=== PATIENT | male | born 1990 | race Caucasian/White ===

== ENCOUNTER 2025-02-26 07:42 | Outpatient (CLI) | payer BC, SELFPAY ==
--- OUTSIDE RECORDS SUMMARY | 2025-02-18 10:29 | XMS_ITS | Clinical Summary ---
Author Organization [facility] Address [address], [address] [place] [address] Care Team Providers Care Attendance Officer Name Role Phone Noemi Hazel SUPERVISOR WHITE SUGAR - FORECLOSURE SPECIALIST Primary Care Provider Allergies No known active allergies Medications acetaminophen (TYLENOL) 325 MG tablet Take 3 tablets by mouth every 6 hours as needed for Pain Active cyclobenzaprine (FLEXERIL) 10 MG tablet Take 1 tablet by mouth 3 times daily as needed for Muscle spasms 15 tablet 3 Active Additional Information Patient not taking.Reported on 02/10/2023 lisinopril (PRINIVIL;ZESTRI L) 10 MG tabletIndication s:Primary hypertension Take 1 tablet by mouth daily 90 tablet 1 3 Active ibuprofen (ADVIL;MOTRIN) 800 MG tablet Take 1 tablet by mouth every 8 hours as needed for Pain or Fever 30 tablet 3 Active Active Problems No known active problems Family History Medical History Relation Name Comments No Known Problems Father Breast Cancer Mother High Blood Pressure Mother Relation Name Status Comments Father Alive Mother Alive Social History Tobacco Use Types Packs/Day Years Used Date Smoking Tobacco: Former Cigarettes Tobacco Cessation:Counseling Given: Not Answered Alcohol Use Standard Drinks/Week Comments Yes 0 (1 standard drink = 0.6 oz pure alcohol) 1 beer after work usually a day Overall Financial Resource Strain (CARDIA) Answe r Date Recorded How hard is it for you to pa y for the very basics like food, housing, medical care, and heating? Not hard at all 02/10/2023 PHQ-2 Answer Date Recorded PHQ-9 Total Score 0 02/10/2023 Hunger Vital Sign Answer Date Recorded Within the past 12 months, y ou worried that your food would run out before you got the money to buy more. Never true 02/11/20 23 Within the past 12 months, t he food you bought just didn't last and you didn't have money to get more. Never true 02/10/2023 PRAPARE - Transportation Answer Date Re corded Lack of Transportation (Medical) Not on file 02/10/2023 In the past 12 months, has l ack of transportation kept you from meetings, work, or from getting things needed for daily living? No 02/10/2023 Housing Stability Vital Sign Answer Gómez e Recorded Unable to Pay for Housing in the Last Year Not o n file 02/10/2023 Number of Places Lived in the Last Year Not on f ile 02/10/2023 In the last 12 months, was t here a time when you did not have a steady place to sleep or slept in a snf (including now)? No 02/10/2023 Food Insecurity Answer Date Recorded Within the past 12 months, y ou worried that your food would run out before you got the money to buy more. 1 02/10/2023 Within the past 12 months, t he food you bought just didn't last and you didn't have money to get more. 1 02/10/2023 Interpersonal Safety Domain Source: IP Abuse Scr eening Answer Date Recorded Read-Only, Retired: Physical Abuse Denies 01/28/2023 Read-Only, Retired: Verbal Abuse Denies 01/28/2023 Read-Only, Retired: Emotional abuse Denies 01/28/2023 Read-Only, Retired: Financial Abuse Denies 01/28/2023 Read-Only, Retired: Sexual abuse Denies 01/28/2023 Sex and Gender Information Value Date Recorded Sex Assigned at Not on file Legal Sex Male 9:15 PM EST Gender Identity Not on file Sexual Orientation Not on file Last Filed Vital Signs Vital Sign Reading Time Taken Comments Blood Pressure 162/107 04/20/2023 1:41 PM EST Pulse 108 04/20/2023 1:41 PM EST Temperature 36.8 C (98.2 F) 04/20/2023 1:41 PM EST Respiratory Rate 20 04/20/2023 1:41 PM EST Oxygen Saturation 97% 04/20/2023 1:41 PM EST Inhaled Oxygen Concentration - - Weight 77.1 kg (170 lb) 04/20/2023 1:41 PM EST Height 190.5 cm (6' 3 ) 04/20/2023 1:41 PM EST Body Mass Index 21.25 04/20/2023 1:41 PM EST Plan of Treatment Health Maintenance Due Date Last Done Comments Varicella vaccine (1 of 2 - 13+ 2-dose series) 01/06/2001 HIV screen 01/06/2003 Hepatitis C screen 01/06/2006 DTaP/Tdap/Td vaccine (1 - Tdap) 01/06/2007 Hepatitis B vaccine (1 of 3 - 19+ 3-dose series) 01/06/2007 Depression Screen 02/11/2024 COVID-19 Vaccine (1 - 2023-2 5 season) 2024 Flu vaccine (#1) 01/11/2025 HPV vaccine (No Doses Required) Completed Hepatitis A vaccine Aged Out No longe r eligible based on patient's age to complete this topic Hib vaccine Aged Out No longer eligi ble based on patient's age to complete this topic Meningococcal (ACWY) vaccine Aged Out No longer eligible based on patient's age to complete this topic Meningococcal B vaccine Aged Out No l onger eligible based on patient's age to complete this topic Pneumococcal 0-49 years Vaccine Aged Out No longer eligible based on patient's age to complete this topic Polio vaccine Aged Out No longer elig ible based on patient's age to complete this topic Insurance Care Teams Attendance Officer Relationship Specialty Start Date End Date Noemi Hazel APRN - [place] [address] PCP - General Family Nurse Practitioner 02/10/23
--- OUTSIDE RECORDS SUMMARY | 2025-02-18 10:29 | XMS_ITS | Encounter Summary ---
Author Organization [facility] Address [address] [place], [place] [id number] Phone [email or web address] Care Team Providers Care Collet Driller Name Role Phone Unavailable Primary Care Provider Unavailabl e Encounter Details Date Type Department Care Team (Late st Contact Info) Description 01/15/2025 Documentation [facility] [address] [place] [address] Shireen Ghosh RN [address] [place] [address] Social History Tobacco Use Types Packs/Day Years Used Date Smoking Tobacco: Never Assessed Sex and Gender Information Value Date Recorded Sex Assigned at Not on file Legal Sex Male 6:21 AM CDT Gender Identity Not on file Sexual Orientation Not on file documented as of this encounter Progress Notes * Shireen Ghosh RN - 01/15/2025 9:20 AM EDT Applicant called. States his provider changed his BP med. Has f/u scheduled. Applicant to monitor BP and call after he is seen by his PCP. documented in this encounter Plan of Treatment Not on file documented as of this encounter Visit Diagnoses Not on filedocumented in this encounter
--- OUTSIDE RECORDS SUMMARY | 2025-02-18 10:29 | XMS_ITS | Clinical Summary ---
Author Organization [facility] Address [address] [place] [phone] Phone [email or web address] Care Team Providers Care Chipper Operator Name Role Phone Unavailable Primary Care Provider Unavailabl e Allergies No known active allergies Medications bisoprolol-hydro CHLOROthiazide (ZIAC) 10-6.25 MG per tablet Take 1 tablet by mouth 1 (one) time each day. 01/02/2025 Active Active Problems No known active problems Encounters Date Type Department Care Team Description 01/15/2025 Documentation [facility] [id number] [place] [phone] Shireen Ghosh RN from Last 3 Months Social History Tobacco Use Types Packs/Day Years Used Date Smoking Tobacco: Never Assessed Sex and Gender Information Value Date Recorded Sex Assigned at Not on file Legal Sex Male 6:21 AM CDT Gender Identity Not on file Sexual Orientation Not on file Last Filed Vital Signs Vital Sign Reading Time Taken Comments Blood Pressure 140/92 01/23/2025 7:27 AM EDT Pulse 74 01/23/2025 7:27 AM EDT Temperature 36.9 C (98.5 F) 01/23/2025 7:27 AM EDT Respiratory Rate - - Oxygen Saturation 98% 01/23/2025 7:27 AM EDT Inhaled Oxygen Concentration - - Weight 81.6 kg (180 lb) 01/23/2025 7:27 AM EDT Height 193 cm (6' 4 ) 01/23/2025 7:27 AM EDT Body Mass Index 21.91 01/23/2025 7:27 AM EDT Plan of Treatment Health Maintenance Due Date Last Done Comments Dental Cleaning/Exam 1988 HIV Screening 1988 Hepatitis C Screening 1988 HPV Immunization (1 - Male 3 -dose series) 01/06/2003 Hep B Infection Screening - Triple Screen 01/06/2006 Hepatitis B Immunization (1 of 3 - 19+ 3-dose series) 01/06/2007 Tetanus Diphtheria and Pertu ssis Immunization (1 - Tdap) 01/06/2007 Covid-19 Immunization (1 - 2 -25 season) 2025 Influenza Immunization (#1) 2025 Annual Preventive Exam 01/10/2026 01/10/2025 HIB Immunization Aged Out No longer e ligible based on patient's age to complete this topic Hepatitis A Immunization Aged Out No longer eligible based on patient's age to complete this topic Pneumococcal: Ped (0 to 5 Yr s) and At-Risk Member (6 to 64 Yrs) Aged Out No longer e ligible based on patient's age to complete this topic Polio Immunization Aged Out No longer eligible based on patient's age to complete this topic Varicella Immunization Aged Out No lo nger eligible based on patient's age to complete this topic
--- NOTE | 2025-02-26 | US_ITS ---
FINAL REPORT TECHNIQUE: Multiple transverse and longitudinal images CLINICAL HISTORY: ELEV LIVER ENZYMES COMPARISON: none FINDINGS: The gallbladder is partially contracted. Mild gallbladder wall thickening is attributed to contracted state. No biliary ductal dilatation is appreciated. No fluid collections are seen. There is fatty change of the liver. Limited portions of the right kidney are unremarkable. Pancreas is largely obscured. IMPRESSION: Fatty liver. Partially contracted gallbladder. Reviewed, Interpreted and Dictated by Kena Su MD Transcribed by Chaya Villar Authenticated and [facility]
--- OUTSIDE RECORDS SUMMARY | 2025-02-26 07:44 | XMS_ITS | Clinical Summary ---
Author Organization [facility] Address [address] [place] [phone] Phone [email or web address] Care Team Providers Care Perinatal Director Name Role Phone Unavailable Primary Care Provider Unavailabl e Allergies No known active allergies Medications bisoprolol-hydro CHLOROthiazide (ZIAC) 10-6.25 MG per tablet Take 1 tablet by mouth 1 (one) time each day. 01/02/2025 Active Active Problems No known active problems Encounters Date Type Department Care Team Description 01/15/2025 Documentation [facility] [address] [place] [phone] Shrieen Ghosh RN from Last 3 Months Social [...]
--- OUTSIDE RECORDS SUMMARY | 2025-02-26 07:44 | XMS_ITS | Clinical Summary ---
Author Organization [facility] Address [address], [address] [place] [address] Care Team Providers Care Coating Machine Operator Name Role Phone Noemi Hazel ENERGY CONSERVATION TECHNICIAN - BURNISHER AND BUMPER Primary Care Provider Allergies No known active [...] place to sleep or slept in a usp (including now)? No 02/10/2023 Food Insecurity Answer [...] Health Maintenance Due Date Last Done Comments Depression Screen 2000 Varicella vaccine (1 of 2 - 13+ 2-dose series) 01/06/2001 HIV screen 01/06/2003 Hepatitis C screen 01/06/2006 DTaP/Tdap/Td vaccine (1 - Tdap) 01/06/2007 Hepatitis B vaccine (1 of 3 - 19+ 3-dose series) 01/06/2007 Flu vaccine (#1) 01/11/2025 COVID-19 Vaccine ( - 2023-2 5 season) 2025 HPV vaccine (No Doses Required) Completed Hepatitis [...] patient's age to complete this topic Insurance [place] [id number] Care Teams Coating Machine Operator Relationship Specialty Start Date End Date Noemi Hazel APRN [place] [address] PCP - General Family Nurse Practitioner 02/10/23
--- OUTSIDE RECORDS SUMMARY | 2025-02-26 07:44 | XMS_ITS | Encounter Summary ---
Author Organization [facility] Address [address] [place], [place] [phone] Phone [email or web address] Care Team Providers Care Electronic Publishing Specialist Name Role Phone Unavailable Primary Care Provider Unavailabl e Encounter Details Date Type Department Care Team (Late st Contact Info) Description 01/15/2025 Documentation [facility] [address] [place] [address] Shireen Ghosh RN [address] [place] [address] Social History Tobacco Use Types [...]
== END 2025-02-26 23:59 | disposition home or self-care (01) ==
PROVIDERS: PCP Nurse Practitioner Family; Visit Provider Nurse Practitioner Family
DX: K76.0 Fatty (change of) liver, not elsewhere classified (principal); K82.0 Obstruction of gallbladder
CPT/HCPCS: 76705